=== PATIENT | female | born 1965 | race Caucasian/White ===

== ENCOUNTER 2017-03-29 20:43 | Emergency (ER) | payer OTHER, MEDICARE ==
[~2017-03-29] VITALS: Ht 162.6 cm; Wt 79.4 kg
[~2017-03-29 20:43] MED LIST: REGLAN10 MG PO
[2017-03-29] MEDS ORDERED: IBUPROFEN800 M1 PO (22:29)
[2017-03-29] MEDS ORDERED: CYCLOBENZAPRINE10 M1 PO (22:29)
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
[2017-03-29 22:39] VITALS: BP 127/84
== END 2017-03-29 22:40 ==
LOC: ERH 20:43
DX: S16.1XXA Strain of muscle, fascia and tendon at neck level, initial encounter (principal); R51 Headache; V43.52XA Car driver injured in collision with other type car in traffic accident, initial encounter; Y93.9 Activity, unspecified; Y92.9 Unspecified place or not applicable